=== PATIENT | female | born 1995 | race Caucasian/White ===

== ENCOUNTER → 2016-10-14 | Outpatient (CLI) | payer OTHER ==
[~2016-10-14] MED LIST: CLR10 PO
[2016-10-17 04:32] LABS: CHLAMYDIA TRACH RNA*** NOT DETECTED (NOT DETECTED); GC (NEIS GONORRHOEAE)RNA** NOT DETECTED (NOT DETECTED)
== END | disposition home or self-care (01) ==
LOC: C.LABSPEC 16:11
PROVIDERS: ATTEND Physician Assistant
DX: Z01.419 Encounter for gynecological examination (general) (routine) without abnormal findings (principal)

== ENCOUNTER → 2016-10-14 | Outpatient (CLI) | payer OTHER | END | disposition home or self-care (01) | LOC: C.PAPS 15:17 | PROVIDERS: ATTEND Physician Assistant | DX: Z12.4 Encounter for screening for malignant neoplasm of cervix (principal) ==

== ENCOUNTER → 2017-08-19 | Outpatient (CLI) | payer OTHER ==
[~2017-08-19] MED LIST changes: +GADAVIST IV PRN
--- NOTE | 2017-08-19 19:59 | DIAGNOSTIC IMAGING REPORT ---
MRI OF THE BRAIN WITHOUT AND WITH IV CONTRAST CLINICAL HISTORY: INTRACTABLE MIGRAINE,HEADACHES W/ VISUAL CHANGES COMPARISON STUDY: No previous studies for comparison. TECHNIQUE: Utilizing a 1.5 Lynda magnet and dedicated coil, multiplanar, multiecho imaging of the brain was performed pre and postcontrast administration. IV administration of 6 mL of Gadavist contrast was uneventful. FINDINGS: There are no foci of restricted diffusion. No acute intracranial hemorrhage, midline shift or mass effect is present. Brain volume is normal. Ventricular system is normal. Basilar cisterns are patent. There are no extra-axial collections. Flow-voids for the major intracranial vessels are present. No intracranial mass or pathologic enhancement is identified. There is no evidence for a Chiari malformation. Prominence of the pituitary gland is within normal limits given the patient's age and sex. The pituitary gland measures 7 mm in craniocaudal dimension. A prominent 1.6 cm CSF signal intensity focus overlying the right frontal lobe on axial image 17 of 22 is likely within normal limits or represent a small arachnoid cyst. Orbits and sinuses are unremarkable. Calvarial signal is maintained. There is no fluid within mastoid air cells. IMPRESSION: 1. No significant abnormality within the brain. 2. Prominence of the pituitary gland which is within normal limits given the patient's age and sex. 3. 1.6 cm CSF signal intensity focus overlying the right frontal lobe which is likely within normal limits or represent a small arachnoid cyst. This is of no significance. Electronically signed by: Howie Moss M.D. 08/19/2017 7:58 PM Dictated Date/Time: 08/19/2017 7:45 PM
== END | disposition home or self-care (01) ==
LOC: C.MRI 18:33
PROVIDERS: ATTEND Psychiatry & Neurology Neurology
DX: G43.119 Migraine with aura, intractable, without status migrainosus (principal)

== ENCOUNTER 2017-09-18 16:20 | Emergency (ER) | payer OTHER ==
[~2017-09-18] VITALS: Ht 170.2 cm; Wt 61.3 kg
[~2017-09-18 16:20] MED LIST changes: -GADAVIST IV PRN
[2017-09-18 16:26] VITALS: TEMP 36.9; Ht 170.2 cm; Wt 61.3 kg
[2017-09-18] MEDS ORDERED: ONDANSETRON 4MG OD TAB PO STA (16:50)
--- NOTE | 2017-09-18 16:55 | EMERGENCY ROOM VISIT NOTE ---
History First contact with patient: 16:35 Chief Complaint: HEAD INJURY (MINOR) Stated Complaint: HEAD INJURY-WC History of Present Illness The patient is a 22 year old female who presents to the Emergency Room with complaints of a head injury that occurred at work last night. The patient had a 7 foot ladder fall onto her head. She denies any loss of consciousness. Since the injury, she has experienced a headache, dizziness, neck pain, nausea and photosensitivity. She denies any other injuries. She has tried to take ibuprofen with minimal relief of her symptoms. The patient's mother notes that she has been more stoic and depressed since the incident. No history of head injuries. She does not take any blood thinners. Review of Systems 6 system review negative. Please see pertinent positives in the history of present illness section. Past Medical/Surgical History Medical Problems: (1) Asthma Surgical Problems: (1) H/O hernia repair (2) History of enlarged adenoids Family History Cancer FH: seizures Social History Smoking Status: Never Smoker Marital Status: single Housing Status: lives with roommate Occupation Status: [employer] student Current/Historical Medications Scheduled Ondasetron Odt (Zofran Odt), 4 MG SL Q6H Physical Exam Vital Signs Date Time Temp Pulse Resp B/P (MAP) Pulse Ox O2 Delivery O2 Flow Rate FiO2 09/18/17 18:26 68 18 93/43 98 Room Air 09/18/17 16:26 36.9 71 18 118/72 99 Physical Exam VITALS: Vitals are noted on the nurse's note and reviewed by myself. Vital signs stable. GENERAL: 22-year-old female, in no acute distress, nondiaphoretic, well- developed well-nourished. SKIN: The skin was without rashes, erythema, edema, or bruising. HEAD: Normocephalic atraumatic. Mild tenderness over the crown. No hematoma. Skin is intact. EARS: External auditory canals clear, tympanic membranes pearly parrish without erythema or effusion bilaterally. EYES: Pupils equal round and reactive to light and accommodation. Conjunctivae without injection, sclerae without icterus. Extraocular movements intact. MOUTH: Mucous membranes moist. NECK: Some pain with flexion and extension. Mild tenderness to palpation over the cervical spinous processes. MUSCULOSKELETAL: Strength 5/5 throughout. NEURO: Patient was alert and oriented to person place and time. Cranial nerves grossly intact. Cerebellar function intact. Negative Romberg. Negative pronator drift. Normal heel to toe walking. Normal sensation to touch. No focal neurological deficits. Medical Decision & Procedures ER Provider Diagnostic Interpretation: CT head and cervical spine without contrast IMPRESSION: 1. No acute intracranial abnormality. Electronically signed by: Sheldon Gonzales M.D. 09/18/2017 5:42 PM Dictated Date/Time: 09/18/2017 5:40 PM The status of this report is Signed. Draft = Not yet reviewed or approved by Radiologist. Signed = Reviewed and approved by Radiologist IMPRESSION: No acute osseous injury of the cervical spine. Electronically signed by: Sheldon Gonzales M.D. 09/18/2017 5:46 PM Dictated Date/Time: 09/18/2017 5:43 PM The status of this report is Signed. Draft = Not yet reviewed or approved by Radiologist. Signed = Reviewed and approved by Radiologist. Medications Administered Medications (Trade) Dose Ordered Sig/Flex Route Start Time Stop Time Status Last Admin Dose Admin Ondansetron HCl (Zofran Odt) 4 mg NOW STAT PO 09/18/17 16:50 09/18/17 16:51 DC 09/18/17 16:55 4 MG ED Course The patient was seen and examined She declined pain medication. She was given one Zofran 4 mg ODT Imaging was performed and reviewed Findings were discussed with the patient and the patient's mother. They voiced understanding, and more comfortable being discharged home. Medical Decision Differential diagnosis: Concussion, closed head injury, intracranial bleed, epidural hematoma, skull fracture, neck injury This patient is a 22-year-old female that presents to the emergency department after a head injury that occurred last night. She has experienced concussive symptoms since. She was neurologically intact on exam. Her imaging was negative for any acute findings. I do believe that she has a significant concussion. She was counseled on concussion precautions. She was encouraged to follow-up with a specialist this coming week. She agrees to return to the emergency department with any new or concerning symptoms This chart was completed in part utilizing [employer] Voice Recognition software. Attempts were made to minimize the grammatical errors, random word insertions, pronoun errors and incomplete sentences. Any formal questions or concerns about the content, text or information contained within the body of this dictation should be directly addressed to the provider for clarification. Impression Primary Impression: Concussion Departure Information Dispostion Home / Self-Care Condition GOOD Prescriptions Ondasetron Odt (ZOFRAN ODT) 4 Mg Tab 4 MG SL Q6H for Nausea, #15 TAB Prov: Marylou Merritt PA-C 09/18/17 Referrals No Doctor, Assigned (PCP) Patient Instructions My [facility] Additional Instructions You have been treated in the Emergency Department for a Closed Head Injury. CT Scan of your head/brain demonstrated no acute bleeding or other abnormalities. This does not completely rule out the risk for future damage to the brain. Please take Zofran 1 tab under the tongue every 6 hours as needed for nausea For pain control, you can use the following [id number] medicines (if >12 yo): - Regular strength (325mg/tab) Tylenol (acetaminophen) 2 tabs every 4-6 hours as needed. Do not exceed 12 tablets in a 24 hour period. Avoid taking more than 4 grams (4000 mg) of Tylenol per day. This includes any other sources of acetaminophen you may take on a regular basis. - Regular strength (200 mg/tab) Advil (ibuprofen) 1-2 tabs every 4-6 hours as needed. Do not exceed a dose of 3200 mg per day. You should relax in a quiet, dark place for the rest of the day. Avoid any possible triggers including: cigarette smoke, caffeine, nicotine, chocolate, wine, beer, loud noises or music, or bright lights. You should schedule a follow-up appointment in 2-3 days with your Primary Care Provider, the concussion clinic or established Neurologist for further evaluation and treatment of your Headache. You should NOT return to athletic play until reevaluated by your Philosophy Lecturer. You should fully comply with their standard protocol regarding head injuries. Your Philosophy Lecturer OR Primary Care Provider will have the final say in your return to athletic play. This timeframe should be AT LEAST 1 week AFTER the date of last symptoms experienced! This is ESSENTIAL to allow for adequate brain healing time and for reduced risk of re-injury. Return to the Emergency Department if your current symptoms worsen despite treatment course outlined above, or if you develop any of the following symptoms : intractable pain despite aforementioned treatment course, visual disturbances , loss of vision, unilateral weakness or facial drooping, slurring of speech, loss of coordination, or loss of consciousness. School Instructions Return To School: 3 days
--- NOTE | 2017-09-18 17:44 | DIAGNOSTIC IMAGING REPORT ---
HEAD WITHOUT CONTRAST (CT) CLINICAL HISTORY: 22 years-old Female presenting with dizzy nauseated HERNANDEZ. TECHNIQUE: Multidetector CT imaging of the head was performed without the use of intravenous contrast. IV contrast: None. A dose lowering technique was used consistent with the principles of ALARA (as low as reasonably achievable). COMPARISON: Brain MR from 08/19/2017. CT DOSE (mGy.cm): The estimated cumulative dose is 843.17. FINDINGS: Library Helper topogram: Unremarkable. Ventricles and sulci normal in size. Brain parenchyma normal in appearance with preserved parrish-white differentiation. No mass effect or midline shift. No hemorrhage or acute territorial infarct. No extra-axial fluid collection. Paranasal sinuses and mastoid air cells clear. Calvarium intact. IMPRESSION: 1. No acute intracranial abnormality. Electronically signed by: Sheldon Gonzales M.D. 09/18/2017 5:42 PM Dictated Date/Time: 09/18/2017 5:40 PM
--- NOTE | 2017-09-18 17:47 | DIAGNOSTIC IMAGING REPORT ---
CERVICAL SPINE W/O CLINICAL HISTORY: 22 years-old Female presenting with neck pain. TECHNIQUE: Multidetector CT of the cervical spine was performed without the use of intravenous contrast. IV contrast: None. A dose lowering technique was used consistent with the principles of ALARA (as low as reasonably achievable). COMPARISON: None. CT DOSE (mGy.cm): The estimated cumulative dose is 843.17 mGy.cm. FINDINGS: Film Loader topogram: Unremarkable. Normal cervical lordosis. Vertebral bodies maintain normal height and alignment. Intervertebral disc spaces preserved. No acute fracture or subluxation. No osseous neural foraminal or spinal canal narrowing. Paraspinal soft tissues within normal limits. IMPRESSION: No acute osseous injury of the cervical spine. Electronically signed by: Sheldon Gonzales M.D. 09/18/2017 5:46 PM Dictated Date/Time: 09/18/2017 5:43 PM
[2017-09-18] MEDS ORDERED: ONDA4TAB10 SL (18:02)
[2017-09-18 18:26] VITALS: BP 93/43; PULSE 68; O2SAT 98
== END 2017-09-18 18:45 | disposition home or self-care (01) ==
LOC: C.EDB 16:22 → C.EDD 18:45
DX: S06.0X0A Concussion without loss of consciousness, initial encounter (principal); W20.8XXA Other cause of strike by thrown, projected or falling object, initial encounter; Y99.0 Civilian activity done for income or pay; J45.909 Unspecified asthma, uncomplicated; Z80.9 Family history of malignant neoplasm, unspecified; Z82.0 Family history of epilepsy and other diseases of the nervous system